=== PATIENT | female | born 1980 | race Caucasian/White ===

== ENCOUNTER → 2018-08-04 10:54 | Outpatient (CLI) | payer BC, SELFPAY ==
[2018-08-04 13:21] LABS: ALB/GLOB Ratio 0.9 RATIO (0.9-2.4); AST(SGOT) 9 U/L (15-37); Alanine Aminotransfer ALT/SGPT 17 U/L (13-56); Albumin, Serum 3.7 g/dL (3.2-5.0); Alkaline Phosphatase 47 U/L (45-117); Anion Gap 8 (5-15); BUN 14 mg/dL (7-18); BUN/Creat Ratio 15.3 RATIO (10-20); Calcium,Total 8.7 mg/dL (8.5-10.1); Chloride 108 mmol/L (98-107); Creatinine, Serum 0.92 mg/dL (0.55-1.02); EST Glomerular Filtration Rate 73 mL/min (>60); Est Glom Filt Rate - Afr Amer 89 mL/min (>60); Ferritin 33 ng/mL (8-252); Follicle Stimulating Hormone 6.6 mIU/mL; Glucose 73 mg/dL (74-106); Luteinizing Hormone 2.8 mIU/mL; Potassium 3.7 mmol/L (3.5-5.1); Protein, Total 7.7 g/dL (6.4-8.2); Sodium Level 140 mmol/L (136-145); T4 Free Direct 0.93 ng/dL (0.76-1.46); Thyroid Stim Hormone (TSH) 1.68 uIU/mL (0.358-3.74)
[2018-08-06 09:32] LABS: ANTINUCLEAR ANTIBODIES DIRECT Negative (Negative); Anti-dsDNA Ab <1 IU/mL (0-9)
[2018-08-07 09:08] LABS: DHEA Sulfate 183.9 ug/dL (57.3-279.2); Testosterone, % Free 2.99 % (0.50-2.80); Testosterone, Free 0.69 ng/dL (0.10-0.85); Testosterone, Total 23 ng/dL (8-48)
[2018-08-07 12:06] LABS: Thyroid Peroxidase AB 13 IU/mL (0-34)
== END ==
PROVIDERS: Referring Provider Dermatology Pediatric Dermatology; Visit Provider Dermatology Pediatric Dermatology
DX: L64.8 Other androgenic alopecia (principal); L63.8 Other alopecia areata; E28.2 Polycystic ovarian syndrome; E03.8 Other specified hypothyroidism
CPT/HCPCS: 36415; 80053; 82627; 82728; 83001; 83002; 84402; 84403; 84439; 84443; 86038; 86225; 86376; 82626